=== PATIENT | female | born 1970 | race Caucasian/White ===

== ENCOUNTER 2024-08-28 06:21 | Day surgery (SDC) | payer OTHER, SELFPAY ==
[2024-08-05 10:38] LABS: Hematocrit 36.8 % (37.0-47.0); Hemoglobin 11.6 g/dL (12.0-16.0); Mean Corp Hgb Conc. 31.5 g/dL (33.0-37.0); Mean Corpuscular Hgb 24.4 pg (27.0-31.0); Mean Corpuscular Volume 77.3 fL (81.0-99.0); Mean Platelet Volume 11.4 fL (7.4-10.4); Platelet Count 321 10^3/uL (130-400); Red Blood Cell Count 4.76 10^6/uL (4.20-5.40); Red Cell Dist. Width 17.7 % (11.5-14.5); White Blood Cell Count 7.6 10^3/uL (4.8-10.8)
[2024-08-05 10:40] VITALS: BMI 44.7
[2024-08-05 10:50] LABS: ALT (SGPT) 23 U/L (0-35); AST (SGOT) 31 U/L (14-36); Albumin 4.1 g/dl (3.5-5.0); Alkaline Phosphatase 111 U/L (38-126); Blood Urea Nitrogen 12 mg/dl (7-17); Calcium 9.5 mg/dl (8.4-10.2); Carbon Dioxide 26 mmol/L (22-30); Chloride 104 mmol/L (98-107); Estimated Creatinine Clearance 115 ml/min; Glucose 125 mg/dl (70-99); Sodium 140 mmol/L (135-145); Total Bilirubin 0.6 mg/dl (0.2-1.3); Total Protein 6.6 g/dl (6.3-8.2); eGFR > 60.00
[2024-08-05 12:58] LABS: Glycohemoglobin (HgbA1c) 5.7 % (4.0-5.6)
--- NOTE | 2024-08-15 14:14 | VNURNOTE ---
Patient is scheduled for an elective TKR on 08/28/24- she is a same day patient. Spoke with patient prior to surgery. Introduced role of [facility] liaison.
Patient reports that she lives with her in a 2 story home.
0 steps to enter. She has a bathroom on first floor and first floor set up.
She has a cane and rolling walker.
PCP is Shanda Hughes.
Discussed orthopedic program and post surgical plans.
Reviewed that she will have VN services initially and will then start outpatient PT. Patient requested to check insurance coverage. Message sent to Dc Vick at [facility] billing dept who confirmed covered, no copay.
Patient selects [facility] for home care needs and will go to [facility] for outpatient PT on 09/01.
Patient is in agreement with plan and states that her spouse will be home with her.
[facility]
Plan: [facility] joint protocol/ [facility] then outpt PT at [facility]
[2024-08-22 08:45] VITALS: BMI 44.7
[2024-08-26 10:06] VITALS: BMI 44.7
[2024-08-28] VITALS (12 sets, daily range): BP systolic 117–161; BP diastolic 62–116
[2024-08-28] MEDS: NORMOSOL-R/PLASMALYTE-A 1000 IV (07:30)
[2024-08-28] MEDS: TYLENOL 650 MG PO (07:50)
[2024-08-28] MEDS: MOBIC 15 MG PO (07:51)
[2024-08-28] MEDS: ROXICODONE 5 MG PO (13:04)
[2024-08-28] MEDS: ANCEF 5 IV (13:31)
[2024-08-28] MEDS: COMPAZINE 10 MG IV (14:12)
--- NOTE | 2024-08-28 17:49 | OR.RPT ---
Operative Report
Operative Report
Orthopaedic Surgery Operative Note
DATE OF OPERATION: 08/28/2024
PREOPERATIVE DIAGNOSES: Osteoarthritis, left knee.
POSTOPERATIVE DIAGNOSES: Osteoarthritis, left knee.
OPERATION PERFORMED:
1) Left total knee arthroplasty (CPT 67176 - 22 modifier for complexity)
2) Intraosseous administration of analgesic (CPT 51413)
SURGEON: Ward Rushing MD
ASSISTANTS: Branden Dudley PA-C who helped with patient and limb positioning and retraction
ANESTHESIA: Spinal and general by anesthesia plus intraoperative infusion of morphine into the tibial metaphysis by Dr. Rushing
COMPLICATIONS: None.
ESTIMATED BLOOD LOSS: 20mL
DRAINS: None
TOURNIQUET TIME: 37minutes.
IMPLANTS:
- Bonnie Persona CR Femur, size 7
- Bonnie Persona tibia base plate, size D
- Bonnie Persona ultracongruent articular surface, 12 mm
- DJO [place] bone cement
INDICATIONS: The patient presented to my office with debilitating left knee pain due to osteoarthritis. We reviewed the natural history of this problem, as well as the risks, benefits, and alternatives of various treatment options. The patient
exhausted all nonoperative treatment options and wished to proceed with knee replacement surgery. The patient understood the risks which included, but were not limited to, bleeding, infection, failure to relieve pain, more pain than preop, damage to
blood vessels and nerves, need for reoperation, mechanical failure of the implants, wound healing problems, stiffness, instability, blood clot, pulmonary embolism, myocardial infarction, pneumonia, arrhythmia, CVA, and . The patient accepted
these risks and wished to proceed. All questions were answered, and informed consent was obtained.
PROCEDURE IN DETAIL: The patient was identified in the preoperative holding area. The left knee was identified as the operative site. The patient was taken in the operating room and placed in a supine position on the operating table. Spinal
anesthesia was performed. The patient was obstructing due to MARILYN, so general anesthesia was also performed. IV antibiotics and tranexamic acid were administered. An SCD was placed on the right lower extremity. A well-padded tourniquet was placed on
the proximal thigh. All bony prominences were well padded. The left lower extremity was prepped and draped in the usual sterile fashion.
We performed a surgical time-out. An interarticular block was performed with local anesthetic with epinephrine. The limb was exsanguinated with an Esmarch bandage, then the tourniquet was inflated to 250 mmHg. I performed interosseous administration
of morphine-saline solution via a Jamshidi style intraosseous needle into the proximal medial tibial metaphysis as described by Elmer Ovalle MD. This was performed to aid in pain control. A midline skin incision was made followed by a medial
parapatellar arthrotomy. A subperiosteal peel was performed on the medial tibia. I excised part of the infrapatellar fat pad to improve our visualization as well as tissue over anterior femur. The patella was everted and the knee was flexed. I
excised the remnants of the anterior and posterior cruciate ligaments as well as tibial and femoral osteophytes with rongeurs.
The knee was flexed, and the extramedullary tibial cutting guide was aligned. [place] was aligned at neutral, rotation was centered on the tibial tubercle, and coronal alignment was aligned with the mechanical axis of the tibia and center of the ankle
joint. The cut height was 10mm off the lateral tibia joint surface. The guide was secured into place. The MCL and LCL were protected. The tibia surface was cut. The cut surface was inspected after removal to ensure appropriate height and slope based
on the preoperative plan. The cut was checked with a drop anupam. It was centered nicely at the ankle.
A drill was used to open the femoral canal. The intramedullary distal femoral cutting guide was inserted into the femur. This was set at 5 degrees +0. This was secured into place with three pins. The cut level was checked with an lani wing. The
distal femur was cut through the cutting guide. The IM guide was reinserted to double check that the level of resection was flush and in appropriate alignment.
Kennebec's line and the transepicondylar axis were marked on the femur. The femoral sizing guide was applied to the anterior femur. Pins were inserted, and the 4-in-1 cutting guide was applied and secured into place. The rotation was compared to
Kennebec's line, the transepicondylar axis, and the neutral tibia cut and was found to be appropriate. The width was checked and found to be appropriate and lateralized on the femur. The anterior, posterior, and chamfur cuts were made. A lamina
damper maker was used to open the flexion gap, and posterior osteophytes were removed with a curved osteotome. The remnant medial and lateral meniscus were also removed. I prophylactically cauterized the lateral geniculate arteries. A 10mm spacer block
was applied to the flexion gap and was noted to be balanced medially and laterally. The knee was extended, and the block showed symmetric to extension and flexion gaps.
The tibia was exposed and sized. Rotation was set in line with the tibial tubercle and congruent with the femur. The trial was secured into place with two pins. The trial femur was impacted into place, and a trial articular surface was placed. The
knee was taken through range of motion and noted to be stable throughout the arc of motion without gaping or excess tension. The patella was noted to track centrally throughout the arc of motion without need for further releases. No full thickness
cartilage defects.
The trials were removed. The tibia keel was prepared with the punch and the drill. The bone surfaces were irrigated with sterile saline and dried. The cement was mixed in a vacuum mixer. Cement gun was used to apply cement to the tibial surface and
the undersurface of the tibial implant. Cement was pressurized into the tibial canal and tibia surface. The tibial component was impacted into place. Excess cement was removed. Cement was applied to the femoral surface and the femoral component. The
femoral component was impacted into place, and excess cement removed. A trial articular surface was inserted, and the knee was extended while the cement polymerized. The tourniquet was let down, and meticulous hemostasis was achieved. Dilute
betadine was poured into the wound and allowed to soak for 3 minutes. The knee was irrigated with copious normal saline.
Once the cement was polymerized, the trial articular surface was removed. Any excess cement was removed. The knee was trialed, and the final articular surface was selected and inserted into the tibial locking mechanism. The knee was reduced. A fresh
drape was applied to the surgical field.
The arthrotomy was closed with 0-PDS. Once closed, an interarticular block was performed with local anesthetic with epi. The deep dermal layer was closed with 2-0 PDS, and the subcuticular skin was closed with 3-0 monocryl. A Dermabond Prineo
dressing was applied to the skin in full flexion. Once this was completely dry, a sterile waterproof dressing was applied.
The anesthesia team performed an adductor canal block in the OR. The patient awoke from anesthesia without any difficulties. The sponge and instrument counts were correct x2 at the end of the case.
Of note, 22 modifier was added for complexity due to BMI >40kg/m2 which required 20 additional minutes of time for positioning, exposure, and implanting the components.
Shiva Rushing MD
== END 2024-08-28 14:45 | disposition home health service (06) ==
LOC: SDS 06:21
PROVIDERS: ATTENDING PHYSICIAN Orthopaedic Surgery; FAMILY PHYSICIAN Nurse Practitioner Adult Health
DX: M17.12 Unilateral primary osteoarthritis, left knee (principal)
CPT/HCPCS: 27447; 36415; 73560; 80053; 83036; 85027; 86850; 86900; 86901; 87070; 93005; 97162; C1713; C1776

== ENCOUNTER → 2024-10-02 11:57 | Outpatient (REF) | payer OTHER, SELFPAY ==
[2024-10-02 16:36] LABS: ALT (SGPT) 16 U/L (0-35); AST (SGOT) 21 U/L (14-36); Albumin 4.1 g/dl (3.5-5.0); Alkaline Phosphatase 151 U/L (38-126); Blood Urea Nitrogen 12 mg/dl (7-17); Calcium 9.4 mg/dl (8.4-10.2); Carbon Dioxide 24 mmol/L (22-30); Chloride 103 mmol/L (98-107); Glucose 96 mg/dl (70-99); HDL Cholesterol 81 mg/dl; Iron 41 ug/dl (37-170); LDL Cholesterol, Calculated 53 mg/dl; Potassium 4.3 mmol/L (3.5-5.1); Sodium 141 mmol/L (135-145); Total Bilirubin 0.9 mg/dl (0.2-1.3); Total Cholesterol 155 mg/dl (50-199); Total Protein 6.9 g/dl (6.3-8.2); Triglyceride 108 mg/dl (10-149); Very Low Density Lipoprotein 21 mg/dl (0-30); eGFR > 60.00
[2024-10-02 16:39] LABS: % Basophils 0.4 % (0-2); % Eosinophils 3.7 % (0-6); % Lymphocytes 9.3 % (20.5-51.1); % Monocytes 8.4 % (1.7-9.3); % Neutrophils 76.2 % (42.2-75.2); Absolute Basophils 0.1 10^3/uL (0-0.2); Absolute Eosinophils 0.6 10^3/uL (0-0.7); Absolute Immature Granulocytes 0.3 10^3/uL (0-0.05); Absolute Lymphocytes 1.4 10^3/uL (1.2-3.4); Absolute Monocytes 1.2 10^3/uL (0.1-0.6); Absolute Neutrophils 11.2 10^3/uL (1.4-6.5); Hematocrit 34.2 % (37.0-47.0); Hemoglobin 10.8 g/dL (12.0-16.0); Mean Corp Hgb Conc. 31.6 g/dL (33.0-37.0); Mean Corpuscular Hgb 25.1 pg (27.0-31.0); Mean Corpuscular Volume 79.4 fL (81.0-99.0); Mean Platelet Volume 10.9 fL (7.4-10.4); Nucleated Red Blood Cells % 0 %; Platelet Count 390 10^3/uL (130-400); Red Blood Cell Count 4.31 10^6/uL (4.20-5.40); Red Cell Dist. Width 18.4 % (11.5-14.5); White Blood Cell Count 14.7 10^3/uL (4.8-10.8)
[2024-10-02 16:45] LABS: Percent Saturation 10 % (20-50); Total Iron Binding Capacity 404 ug/dl (265-497)
[2024-10-02 16:48] LABS: Prolactin 18.4 ng/ml (3.0-18.6)
[2024-10-02 17:02] LABS: TSH Reflex To Free T4 1.07 uIU/ml (0.47-4.68)
[2024-10-02 17:11] LABS: Ferritin 22.4 ng/ml (11.1-264.0)
== END ==
LOC: HWLAB 11:57
PROVIDERS: ATTENDING PHYSICIAN Nurse Practitioner Adult Health
DX: R79.89 Other specified abnormal findings of blood chemistry (principal); Z00.01 Encounter for general adult medical examination with abnormal findings; D50.0 Iron deficiency anemia secondary to blood loss (chronic)
CPT/HCPCS: 36415; 80053; 80061; 82728; 83540; 83550; 84146; 84443; 85025

== ENCOUNTER → 2025-04-01 11:43 | Outpatient (REF) | payer OTHER, SELFPAY ==
[2025-04-01 16:55] LABS: % Basophils 0.4 % (0-2); % Eosinophils 4.4 % (0-6); % Immature Granulocytes 0.4 % (0-0.5); % Lymphocytes 13.1 % (20.5-51.1); % Monocytes 8.3 % (1.7-9.3); % Neutrophils 73.4 % (42.2-75.2); Absolute Eosinophils 0.3 10^3/uL (0-0.7); Absolute Monocytes 0.7 10^3/uL (0.1-0.6); Absolute Neutrophils 5.7 10^3/uL (1.4-6.5); Hematocrit 36.8 % (37.0-47.0); Hemoglobin 11.1 g/dL (12.0-16.0); Mean Corp Hgb Conc. 30.2 g/dL (33.0-37.0); Mean Corpuscular Volume 76.3 fL (81.0-99.0); Mean Platelet Volume 11.3 fL (7.4-10.4); Nucleated Red Blood Cells % 0 %; Platelet Count 363 10^3/uL (130-400); Red Blood Cell Count 4.82 10^6/uL (4.20-5.40); Red Cell Dist. Width 17.9 % (11.5-14.5); White Blood Cell Count 7.8 10^3/uL (4.8-10.8)
[2025-04-01 17:00] LABS: Alkaline Phosphatase, Total 112 U/L (38-126); Blood Urea Nitrogen 10 mg/dl (7-17); Calcium 9.3 mg/dl (8.4-10.2); Carbon Dioxide 29 mmol/L (22-30); Chloride 105 mmol/L (98-107); Glucose 97 mg/dl (70-99); Iron 37 ug/dl (37-170); Potassium 4.1 mmol/L (3.5-5.1); Sodium 140 mmol/L (135-145); eGFR > 60.00
[2025-04-01 17:11] LABS: Percent Saturation 8 % (20-50); Total Iron Binding Capacity 413 ug/dl (265-497)
[2025-04-01 17:40] LABS: Ferritin 8.5 ng/ml (11.1-264.0)
[2025-04-01 17:44] LABS: Alk Phos After Heat 73; Alkaline Phosphatase Percent 65.18
== END ==
LOC: HWLAB 11:43
PROVIDERS: ATTENDING PHYSICIAN Nurse Practitioner Adult Health
DX: D50.0 Iron deficiency anemia secondary to blood loss (chronic) (principal); D72.829 Elevated white blood cell count, unspecified; R74.8 Abnormal levels of other serum enzymes; I10 Essential (primary) hypertension
CPT/HCPCS: 36415; 80048; 82728; 83540; 83550; 84078; 85025